=== PATIENT | male | born 1950 | race Caucasian/White ===

== ENCOUNTER 2023-07-26 08:52 | Outpatient (CLI) | payer MEDICARE, BC ==
[2023-07-26 10:39] LABS: Hematocrit 44.7 % (38.8-50.0); Hemoglobin 15.6 g/dL (13.5-17.5); Mean Corpuscular HGB CONC 34.9 g/dL (32.0-36.0); Mean Corpuscular Hemoglobin 30.5 pg (27.0-33.0); Mean Corpuscular Volume 87.5 fl (81.2-95.1); Mean Platelet Volume 10.1 fl (7.4-10.4); Platelet Count 212 10x3/uL (150-450); RBC Distribution Width 12.7 % (11.5-14.5); Red Blood Cell (RBC) Count 5.11 10x6/uL (4.32-5.72); White Blood Cell (WBC) Count 7.3 10x3/uL (3.5-10.5)
[2023-07-26 11:04] LABS: Anion Gap 11 mmol/L (10-20); BUN (Urea Nitrogen) 17 mg/dL (8.4-25.7); Calc. Creatinine Clearance 0 mL/min (70-130); Calcium 8.8 mg/dL (7.8-10.44); Carbon Dioxide 25 mmol/L (23-31); Chloride 106 mmol/L (98-107); Estimated GFR 82; Glucose 92 mg/dL (83-110); Potassium 4.4 mmol/L (3.5-5.1); Sodium 138 mmol/L (136-145)
== END 2023-07-26 08:53 | disposition home or self-care (01) ==
LOC: CSHLAB 08:52
PROVIDERS: ATTEND Otolaryngology
DX: Z01.818 Encounter for other preprocedural examination (principal); J33.9 Nasal polyp, unspecified; J32.0 Chronic maxillary sinusitis; J32.9 Chronic sinusitis, unspecified
CPT/HCPCS: 80048; 85027; 93005; 93010

== ENCOUNTER 2023-08-02 06:04 | Day surgery (SDC) | payer MEDICARE, BC ==
[2023-07-26 09:38] VITALS: BMI 27.7
[2023-08-02] MEDS ORDERED: Dexmedetomidine 200 MCG/2 ML VIAL ONE (06:33)
[2023-08-02] MEDS ORDERED: Oxymetazoline HCl 0.05% ( 15 ML ) ONE (07:29)
[2023-08-02] MEDS ORDERED: Fentanyl 250 MCG/5 ML VIAL ONE (08:52)
[2023-08-02] MEDS ORDERED: Rocuronium Bromide 10 MG/ML (10ML VIAL) ONE (08:52)
[2023-08-02] MEDS ORDERED: Ondansetron PF 4 MG/2 ML Vial ONE ×2 (08:52→09:27)
[2023-08-02] MEDS ORDERED: Dexamethasone 20 MG/5 ML VIAL ONE (08:52)
[2023-08-02] MEDS ORDERED: PROPOFOL 20 ML ONE (08:52)
[2023-08-02] MEDS ORDERED: Lidocaine 1% PF 5 ML VIAL ONE (08:52)
[2023-08-02] MEDS ORDERED: Midazolam HCl 2 mg/2 ml Vial ONE (08:53)
[2023-08-02] MEDS ORDERED: EPINEPHrine 1 MG/ML VIAL ONE ×2 (08:54→08:57)
[2023-08-02] MEDS ORDERED: CEFAZOLIN 2 GM VIAL ONE (08:54)
[2023-08-02] MEDS ORDERED: SUGAMMADEX SODIUM 200 MG/2 ML VIAL ONE (09:26)
[2023-08-02] MEDS ORDERED: Mupirocin 2% Ointment 22 GM Tube ONE (09:36)
[2023-08-02] MEDS ORDERED: Tranexamic Acid 1,000 MG/10 ML VIAL ONE (09:56)
[2023-08-02] MEDS ORDERED: ePHEDrine Sulfate 50 MG/10 ML VIAL ONE (09:57)
[2023-08-02] MEDS ORDERED: PHENYLEPHRINE-NS 100 MCG/ML 10 ML SYRINGE ONE (09:59)
== END 2023-08-02 13:55 | disposition home or self-care (01) ==
LOC: CSHSDC 06:04
PROVIDERS: ATTEND Otolaryngology
PROC: 09BV8ZZ Excision of Left Ethmoid Sinus, Via Natural or Artificial Opening Endoscopic (ICD-10-PCS; principal; 2023-08-02)
PROC: 09BQ8ZZ Excision of Right Maxillary Sinus, Via Natural or Artificial Opening Endoscopic (ICD-10-PCS; 2023-08-02)
PROC: 09BR8ZZ Excision of Left Maxillary Sinus, Via Natural or Artificial Opening Endoscopic (ICD-10-PCS; 2023-08-02)
PROC: 09BU8ZZ Excision of Right Ethmoid Sinus, Via Natural or Artificial Opening Endoscopic (ICD-10-PCS; 2023-08-02)
PROC: 09QM8ZZ Repair Nasal Septum, Via Natural or Artificial Opening Endoscopic (ICD-10-PCS; 2023-08-02)
DX: J32.0 Chronic maxillary sinusitis (principal); J33.9 Nasal polyp, unspecified; I10 Essential (primary) hypertension; Z79.82 Long term (current) use of aspirin; Z79.899 Other long term (current) drug therapy; Z96.649 Presence of unspecified artificial hip joint; Z91.048 Other nonmedicinal substance allergy status
CPT/HCPCS: 30520; 31254; 31267; C1726; C1776; C2625; J0171; 88305; J1100; J2250; J2405; J2704; J3010